=== PATIENT | male | born 1950 | race Asian ===

== ENCOUNTER 2019-07-26 01:57 | Emergency (ER) | payer OTHER ==
[~2019-07-26] VITALS: Ht 167.6 cm; Wt 76.2 kg
--- NOTE | 2019-07-26 02:05 | NUR ---
ED Nurse Note: ambulated steady to ed from home c/o hypertension and frontal headache since 0100. reports sbp at home 200's. BP at bedside 155/81. reports taking extra dose of valsartan and aspirin at 0100. patient ao4 nad.
[2019-07-26] MEDS ORDERED: DIOVAN80 MG ORAL (02:06)
[2019-07-26] MEDS ORDERED: LIPITOR80 MG ORAL (02:06)
[2019-07-26] MEDS ORDERED: ASPIR 8181 MG ORAL (02:06)
--- NOTE | 2019-07-26 02:15 | NUR ---
ED Nurse Note: iv access established. blood collected; sent down to lab.
--- NOTE | 2019-07-26 02:26 | Emergency Room Report ---
History of Present Illness General Chief Complaint: Headache Source: Patient Present Illness HPI This is a 68-year-old male with history of high blood pressure. He presents with uvular headache and high blood pressure. He said at home his blood pressure went up to 250 systolic. He took his extra dose of losartan and aspirin. He also complaining of right upper back pain. He said he had a headache with it. He said it felt better now. No nausea no vomiting. No fever chills. No focal deficit. No slurred speech. Never had this problem before. Denies any other complaint. Denies any chest pain. Allergies: Coded Allergies: No Known Allergies (Unverified , 05/13/15) COVID-19 Screening Contact w/high risk pt: No Recent Travel to affected area: No Experienced COVID-19 symptoms?: No COVID-19 Testing performed EXECUTIVE ASSOCIATE: No Patient History Past Medical History: see triage record, old chart reviewed, HTN Past Surgical History: none Pertinent Family History: none Social History: Denies: smoking Immunizations: other Reviewed Nursing Documentation: PMH: Agreed; PSxH: Agreed Nursing Documentation-PMH Past Medical History: No History, Except For Hx Hypertension: Yes Review of Systems Eye: Denies: eye pain, blurred vision ENT: Denies: ear pain, nose congestion, throat swelling Respiratory: Denies: cough, shortness of breath Cardiovascular: Denies: chest pain, palpitations Gastrointestinal: Denies: abdominal pain, diarrhea, nausea, vomiting Musculoskeletal: Reports: back pain; Denies: joint pain Skin: Denies: rash Neurological: Reports: headache; Denies: numbness Endocrine: Denies: increased thirst, increased urine Hematologic/Lymphatic: Denies: easy bruising All Other Systems: negative except mentioned in HPI Physical Exam Vital Signs Date Time Temp Pulse Resp B/P (MAP) Pulse Ox O2 Delivery O2 Flow Rate FiO2 07/26/19 02:02 97.0 80 18 180/81 (114) 98 Room Air Vitals with high blood pressure Sp02 EP Interpretation: reviewed, normal General Appearance: well appearing, no apparent distress, alert Head: normocephalic, atraumatic Eyes: bilateral eye PERRL, bilateral eye EOMI ENT: hearing grossly normal, normal pharynx Neck: full range of motion, supple, no meningismus Respiratory: chest non-tender, lungs clear, normal breath sounds Cardiovascular #1: regular rate, rhythm, no murmur Gastrointestinal: normal bowel sounds, non tender, no mass, no organomegaly, no bruit, non-distended Musculoskeletal: back normal, normal range of motion, gait/station normal Psychiatric: mood/affect normal Medical Decision Making Diagnostic Impression: Primary Impression: Headache Qualified Codes: R51 - Headache Additional Impression: Hypertension Qualified Codes: I10 - Essential (primary) hypertension ER Course Patient presents with hypertension and headache. He did take his extra dose of losartan already. No evidence of any endorgan damage. No evidence of bleed or CVA. No evidence of any ACS. His blood pressure has been in the normal range here. Will discharge home. EKG Diagnostic Results Rate: normal Rhythm: NSR ST Segments: other - RBBB Rhythm Strip Diag. Results EP Interpretation: yes Rate: 81 Rhythm: NSR, no PVC's, no ectopy Chest X-Ray Diagnostic Results Chest X-Ray Diagnostic Results : Chest X-Ray Ordered: Yes # of Views/Limited/Complete: 1 View Indication: Chest Pain EP Interpretation: Yes Interpretation: no consolidation, no effusion, no pneumothorax, no acute cardiopulmonary disease Impression: No acute disease Electronically Signed by: Krish Brock MD CT/MRI/US Diagnostic Results CT/MRI/US Diagnostic Results : Imaging Test Ordered: CT head Impression Negative per radiologist Last Vital Signs Date Time Temp Pulse Resp B/P (MAP) Pulse Ox O2 Delivery O2 Flow Rate FiO2 07/26/19 02:02 97.0 80 18 180/81 (114) 98 Room Air Status: improved Disposition: HOME, SELF-CARE Condition: Serious Additional Instructions: Take your blood pressure medication. Follow-up with your doctor in 7 days. Return if worse. Krish Brock MD July 26, 2019 02:26
[2019-07-26 02:28] VITALS: BP 155/80
--- NOTE | 2019-07-26 02:31 | NUR ---
ED Nurse Note: radiology at bedside for cxr
[2019-07-26 02:32] LABS: BASOPHILS % (AUTO) 0.9 % (0.0-2.0); EOSINOPHILS % (AUTO) 5.7 % (0.0-3.0); HEMATOCRIT 41.9 % (42.0-52.0); LYMPHOCYTES % (AUTO) 22.9 % (20.0-45.0); MEAN CORPUSCULAR VOLUME 91 FL (80-99); MONOCYTES % (AUTO) 12.4 % (1.0-10.0); PLATELET COUNT 295 K/UL (150-450); RED BLOOD COUNT 4.59 M/UL (4.70-6.10); RED CELL DISTRIBUTION WIDTH 11.8 % (11.6-14.8); WHITE BLOOD COUNT 7.3 K/UL (4.8-10.8)
[2019-07-26 02:46] LABS: ANION GAP 7 mmol/L (5-15); BLOOD UREA NITROGEN 21 mg/dL (7-18); CARBON DIOXIDE 31 MMOL/L (21-32); CHLORIDE 102 MMOL/L (98-107); CREATININE 1.4 MG/DL (0.55-1.30); POTASSIUM 3.7 MMOL/L (3.5-5.1); SODIUM 140 MMOL/L (136-145)
--- NOTE | 2019-07-26 03:00 | NUR ---
ED Nurse Note: Pt back from CT. reattached to monitor. NAD VSS
--- NOTE | 2019-07-26 03:54 | Diagnostic Imaging Report ---
EXAM: CT Head Without Intravenous Contrast CLINICAL HISTORY: Headache. TECHNIQUE: Axial computed tomography images of the head/brain without intravenous contrast. CTDI is 53.4 mGy and DLP is 1179.1 mGy-cm. One or more of the following dose reduction techniques were used: automated exposure control, adjustment of the mA and/or kV according to patient size, use of iterative reconstruction technique. COMPARISON: None. FINDINGS: Brain: Minimal small vessel disease of aging. No abnormal extra-axial collection. No hemorrhage. Midline shift: No midline shift or mass-effect. Ventricles: There is prominence of the ventricular system, cortical sulci, basilar cisterns, compatible with age-related atrophy. Bones/joints: The calvarium is within normal limits. No acute fracture. Soft tissues: Unremarkable. Sinuses: Visualized sinuses are unremarkable. Mastoid air cells: Mastoid air cells are well pneumatized. IMPRESSION: 1. No acute intracranial pathology is detected. 2. If there is concern for etiology such as early acute lacunar infarcts, magnetic resonance imaging of the brain with diffusion-weighted sequences should be performed for follow-up.
[2019-07-26 04:00] VITALS: BP 117/54
--- NOTE | 2019-07-26 04:00 | NUR ---
ED Nurse Note: repeat troponin drawn; urine collected; sent down to lab. Patient resting in bed with no acute distress. vss bp 123/51
[2019-07-26 04:26] LABS: APPEARANCE,URINE CLEAR; BILIRUBIN, URINE NEGATIVE (NEGATIVE); COLOR,URINE PALE YELLOW; GLUCOSE, URINE (UA) NEGATIVE (NEGATIVE); KETONES,URINE NEGATIVE (NEGATIVE); LEUKOCYTE ESTERASE ,URINE NEGATIVE (NEGATIVE); NITRITE,URINE NEGATIVE (NEGATIVE); PH,URINE 5 (4.5-8.0); PROTEIN,URINE NEGATIVE (NEGATIVE); UROBILINOGEN,URINE NORMAL MG/DL (0.0-1.0)
--- NOTE | 2019-07-26 04:51 | Diagnostic Imaging Report ---
EXAM: XR Chest, 1 View CLINICAL HISTORY: Chest pain. TECHNIQUE: Frontal view of the chest. COMPARISON: None. FINDINGS: Lungs: 0.4 cm density at the right lung base near the CP angle, possibly calcified granuloma. Minimal scarring versus subsegmental atelectasis at the inferior aspect the right midlung zone. Pleural space: Unremarkable. No pneumothorax. Heart: Mild cardiomegaly. Mediastinum: Unremarkable. Bones/joints: Osteopenia. Other findings: Mild hypoaeration. IMPRESSION: 1. Mild hypoaeration. 2. Mild cardiomegaly. 3. Subcentimeter nodule at the periphery of the right lung base, possibly calcified granuloma. Comparison with previous studies is advised. Otherwise, CT imaging of the chest without contrast is advised. 4. Scarring versus atelectasis at the inferior aspect of the right midlung zone.
--- NOTE | 2019-07-26 04:53 | NUR ---
ER DISCHARGE NOTE: Patient is cleared to be discharged per ERMD, pt is aox4, on room air, with stable vital signs. pt was given dc and prescription instructions, pt was able to verbalize understanding, pt id band and iv site removed without complications. pt is able to ambulate with steady gait. pt took all belongings.
[2019-07-26 04:54] VITALS: BP 117/53
== END 2019-07-26 04:54 | disposition home or self-care (01) ==
LOC: EMR 02:32
DX: R51 Headache (principal); I10 Essential (primary) hypertension; I45.10 Unspecified right bundle-branch block; M54.6 Pain in thoracic spine
CPT/HCPCS: 36415; 70450; 71045; 80048; 81001; 84484; 85025; 93005; 99284

== ENCOUNTER 2019-08-06 23:48 | Emergency (ER) | payer OTHER ==
[~2019-08-06] VITALS: Ht 167.6 cm; Wt 77.1 kg
[~2019-08-06 23:48] MED LIST: ASPIR 8181 MG ORAL; DIOVAN80 MG ORAL; LIPITOR80 MG ORAL
[2019-08-07 00:16] VITALS: BP 175/74
--- NOTE | 2019-08-07 00:20 | Emergency Room Report ---
History of Present Illness General Chief Complaint: Hypertension Source: Patient Present Illness HPI This is a 68-year-old male with a history of high blood pressure. He presents with chief complaint of headache and high blood pressure. He was here last week for the same thing. Lab work was unremarkable. CT head was negative. Troponin x2 was negative. Patient said he quit smoking 9 days ago. His brother just and he said his blood pressure today is been high. He said systolic is been running in the 1 80-200. He took an extra Catapres before he came in. Patient complained of throbbing headache. No nausea no vomiting. No chest pain. Nothing made it better. Nothing made it worse. No focal deficit. Allergies: Coded Allergies: No Known Allergies (Unverified , 05/13/15) COVID-19 Screening Contact w/high risk pt: No Recent Travel to affected area: No Experienced COVID-19 symptoms?: No COVID-19 Testing performed COMMERCIAL DIVER: No Patient History Past Medical History: see triage record, old chart reviewed, HTN Past Surgical History: none Pertinent Family History: none Social History: Denies: smoking - just quit 9-day ago Immunizations: other Reviewed Nursing Documentation: PMH: Agreed; PSxH: Agreed Nursing Documentation-PMH Hx Hypertension: Yes Review of Systems Eye: Denies: eye pain, blurred vision ENT: Denies: ear pain, nose congestion, throat swelling Respiratory: Denies: cough, shortness of breath Cardiovascular: Denies: chest pain, palpitations Gastrointestinal: Denies: abdominal pain, diarrhea, nausea, vomiting Musculoskeletal: Denies: back pain, joint pain Skin: Denies: rash Neurological: Reports: headache; Denies: numbness Endocrine: Denies: increased thirst, increased urine Hematologic/Lymphatic: Denies: easy bruising All Other Systems: negative except mentioned in HPI Physical Exam Vital Signs Date Time Temp Pulse Resp B/P (MAP) Pulse Ox O2 Delivery O2 Flow Rate FiO2 08/06/19 23:53 98.8 80 20 189/85 (119) 97 Room Air Vitals with hypertension Sp02 EP Interpretation: reviewed, normal General Appearance: well appearing, no apparent distress, alert Head: normocephalic, atraumatic Eyes: bilateral eye PERRL, bilateral eye EOMI ENT: hearing grossly normal, normal pharynx Neck: full range of motion, supple, no meningismus Respiratory: chest non-tender, lungs clear, normal breath sounds Cardiovascular #1: regular rate, rhythm, no murmur Gastrointestinal: normal bowel sounds, non tender, no mass, no organomegaly, no bruit, non-distended Musculoskeletal: back normal, normal range of motion, gait/station normal Psychiatric: mood/affect normal Medical Decision Making Diagnostic Impression: Primary Impression: Hypertension Qualified Codes: I10 - Essential (primary) hypertension ER Course This patient presents with hypertension. EKG unchanged from before. No evidence of endorgan damage. Will discharge home. Last Vital Signs Date Time Temp Pulse Resp B/P (MAP) Pulse Ox O2 Delivery O2 Flow Rate FiO2 08/06/19 23:53 98.8 80 20 189/85 (119) 97 Room Air Status: improved Disposition: HOME, SELF-CARE Condition: Stable Scripts Amlodipine Besylate (Norvasc) 5 Mg Tablet 5 MG ORAL DAILY, #30 TAB Prov: Krish Brock MD 08/07/19 Referrals: [email or web address],REFERRING (PCP) Additional Instructions: Follow-up with your doctor in 7 days. Return if worse. Krish Brock MD Aug 07, 2019 00:20
[2019-08-07 00:36] VITALS: BP 160/89
[2019-08-07] MEDS ORDERED: NORVASC5 MG ORAL (01:10)
[2019-08-07 01:30] VITALS: BP 164/60
== END 2019-08-07 01:30 | disposition home or self-care (01) ==
LOC: EMR 08-07 00:14
DX: I10 Essential (primary) hypertension (principal)
CPT/HCPCS: 96374; 96376; 99284; J0360